=== PATIENT | female | born 1965 | race Caucasian/White ===

== ENCOUNTER 2018-08-18 10:24 | Inpatient (IN) | payer MEDICAID ==
[~2018-08-18] VITALS: Ht 152.4 cm; Wt 51.5 kg
[2018-08-18] MEDS ORDERED: PIPERACILLIN /TAZOBACTAM 3.375 G in IV D5W 50 ML IV ONE (11:30)
[2018-08-18] MEDS ORDERED: IV NS 0.9% 1,000 ML BAG IV ONE (11:30)
[2018-08-18] MEDS ORDERED: CEFTRIAXONE 1GM BAG (ER ONLY) 1 GM/50 ML PIGGYBACK IV ONE (11:30)
--- NOTE | 2018-08-18 11:30 | NUR ---
Discussed plan of care. Comfortably reclining in [facility] No obvious distress
[2018-08-18 11:42] LABS: BASOPHILS # (AUTO) 0.1 /CMM (0.0-0.2); BASOPHILS % (AUTO) 1.2 % (0.0-2.0); EOSINOPHILS % (AUTO) 3.9 % (0.0-6.0); HEMATOCRIT 46 % (33-45); HEMOGLOBIN 15.3 g/dL (11.5-14.8); LYMPHOCYTES # (AUTO) 1.7 /CMM (0.8-4.8); LYMPHOCYTES % (AUTO) 26.1 % (20.0-44.0); MEAN CORPUSCULAR HGB CONC 33 g/dl (31.0-36.0); MEAN CORPUSCULAR VOLUME 87 fL (82-100); MONOCYTES # (AUTO) 0.4 /CMM (0.1-1.30); NEUTROPHILS # (AUTO) 4.2 /CMM (1.8-8.9); NEUTROPHILS % (AUTO) 62.8 % (43.0-81.0); PLATELET COUNT (AUTO) 309 /CMM (150-450); RED BLOOD CELL COUNT(AUTO) 5.33 MIL/uL (4.0-5.2); WHITE BLOOD COUNT (AUTO) 6.7 K/uL (4.3-11.0)
[2018-08-18 11:49] LABS: CALCIUM, SERUM 9.5 mg/dL (8.5-10.1); CREATININE 0.8 mg/dL (0.6-1.3); POTASSIUM 3.6 mmol/L (3.5-5.1)
[2018-08-18] MEDS ORDERED: CEFTRIAXONE 1 G VIAL ONE (12:17)
--- NOTE | 2018-08-18 13:00 | NUR ---
Pt updated with plan of care. Awaiting admission.
[2018-08-18] MEDS ORDERED: CT SWABBABLE VALVE TRANS SET 1 EA INFUS.SET MC ONE (13:54)
[2018-08-18] MEDS ORDERED: IOHEXOL-300 100 ML VIAL IV ONE (13:54)
[2018-08-18] MEDS ORDERED: IV NS 0.9% 250 ML IV ONE (13:54)
[2018-08-18] MEDS ORDERED: HYDROCODONE/APAP 5/325MG 1 EACH TABLET PO PRN ×2 (14:00→14:45)
[2018-08-18] MEDS ORDERED: MAGNESIUM HYDROXIDE 30 ML UDC PO PRN ×2 (14:00→14:45)
[2018-08-18] MEDS ORDERED: ACETAMINOPHEN 325 MG TABLET PO PRN ×2 (14:00→14:45)
[2018-08-18] MEDS ORDERED: Z GUARD REMEDY 2 OZ OINT TP PRN ×2 (14:00→14:45)
[2018-08-18] MEDS ORDERED: MAG HYDROX/AL HYDROX/SIMETH 30 ML UDC PO PRN ×2 (14:00→14:45)
[2018-08-18] MEDS ORDERED: IV NS 0.9% 1,000 ML IV PRN ×2 (14:00→14:45)
[2018-08-18] MEDS ORDERED: HYDROCODONE/APAP 10/325MG 1 EA TABLET PO PRN ×2 (14:00→14:45)
[2018-08-18] MEDS ORDERED: ONDANSETRON HCL/PF 4 MG/2 ML VIAL IVP PRN ×2 (14:00→14:45)
--- NOTE | 2018-08-18 14:31 | NUR ---
ADMIT FROM ER TELEPHONE REPORT RECIEVED FROM MORENA CHINO FROM ER. PATIENT IS TO BE ADMITTED TO [id number] WITH DX OF CELLULITIS. PER REPORT VSS, PATIENT AMBULATORY AND ON ROOM AIR. APPARENTLY HAD BODY SCULPTING PROCEDURE AT [facility] AND THEY MADE INCISION TO LOWER ABD THREE WEEKS AGO AND AREA IS NOW REDDENED AND WARM TO TOUCH, PATIENT REPORTEDLY HAD FEVER AND CHILLS YESTERDAY AND CAME TO ER.
--- NOTE | 2018-08-18 14:31 | NUR ---
Pt for admission to [facility]. NKE with RN-Freddie. Transported to floor in no obvious distress. VSS
[2018-08-18] MEDS ORDERED: FEE PK DOSING 1 MIN EA MC ONE (15:49)
--- NOTE | 2018-08-18 15:50 | NUR ---
MS RN NOTES RECEIVED PATIENT IN BED ALERT, ORIENTED X3 NO SOB OR ACUTE DISTRESS NOTED. PATIENT WITH PERIPHERAL IV ON RIGHT AC INTACT PATENT. PATIENT STATES SHE HAD SOME SORT OF COSMETIC PROCEDURE WHICH GOT INFECTED. SHE HAS AND OPEN ABDOMINAL WOUND ON LOWER ABDOMEN WHICH IS INFECTED. BED IN LOW LOCKED POSITION. CALL LIGHT WITHIN REACH. PATIENT ORIENTED TO ROOM . WILL CONTINUE TO MONITOR.
[2018-08-18 16:00] VITALS: BP 135/86
[2018-08-18] MEDS: VANCOMYCIN 1 GM in IV D5W 250 ML IV SCH (17:25)
[2018-08-18] MEDS ORDERED: PIPERACILLIN /TAZOBACTAM 3.375 G in IV D5W 50 ML IV SCH ×4 (18:00)
[2018-08-18] MEDS: PIPERACILLIN /TAZOBACTAM 3.375 G in IV D5W 100 ML IV SCH (19:15)
--- NOTE | 2018-08-18 19:25 | NUR ---
MS RN NOTES PATIENT IN BED RESTING NO SOB OR ACUTE DISTRESS NOTED. ALL DUE MEDICATIONS ADMINISTERED. ALL NEEDS MET. ENDORSE CARE TO PM SHIFT.
--- NOTE | 2018-08-18 19:30 | NUR ---
MS/RN NOTES RECEIVED PT. LYING IN BED. PT. IS AWAKE, ALERT AND ORIENTED X4. BREATHING EVEN AND UNLABORED ON ROOM AIR. NO SOB, RESPIRATORY DISTRESS OR COMPLAINTS OF PAIN NOTED AT THIS TIME. PT. WITH RIGHT AC 22 GAUGE PERIPHERAL IV PRESENT, PATENT AND INTACT ADMINISTERING TO PT. NS @ 60ML/HR. BED LOCKED AND IN LOWEST POSITION, SIDE RAILS UP X2, CALL LIGHT WITHIN REACH, WILL CONTINUE TO MONITOR.
[2018-08-18 20:00] VITALS: BP 106/57
[2018-08-19] MEDS: PIPERACILLIN /TAZOBACTAM 3.375 G in IV D5W 100 ML IV SCH ×2 (02:27→09:05)
[2018-08-19] MEDS: VANCOMYCIN 1 GM in IV D5W 250 ML IV SCH (04:55)
--- NOTE | 2018-08-19 06:39 | NUR ---
MS/RN NOTES PT. IS LYING IN BED RESTING. BREATHING EVEN AND UNLABORED ON ROOM AIR. NO SOB, RESPIRATORY DISTRESS OR COMPLAINTS OF PAIN NOTED AT THIS TIME. PT. WITH RIGHT AC 22 GAUGE PERIPHERAL IV PRESENT, PATENT AND INTACT ADMINISTERING TO PT. NS @ 60ML/HR. ALL PT. NEEDS MET. BED LOCKED AND IN LOWEST POSITION, SIDE RAILS UP X2, CALL LIGHT WITHIN REACH, WILL ENDORSE TO DAYSHIFT NURSE FOR CONTINUITY OF CARE.
[2018-08-19 06:54] LABS: POTASSIUM 3.7 mmol/L (3.5-5.1)
[2018-08-19 08:00] VITALS: BP 112/65
--- NOTE | 2018-08-19 08:11 | NUR ---
M/S RN OPENING NOTES PATIENT A/O X 4 AND ABLE TO MAKE NEEDS KNOWN. RESPIRATION EVEN AND UNLABORED WITH NO ACUTE RESPIRATORY DISTRESS. ABDOMEN SOFT AND NON DISTENDED WITH ACTIVE BOWEL SOUNDS. SKIN WARM TO TOUCH, WITH ABDOMEN WOUND COVERED. DENIES PAIN AND DISCOMFORT AT THIS TIME. IV LINE ON RIGHT AND LEFT ANTECUBITAL PATENT WITH NO S/SX OF INFILTRATION, RUNNING WITH NS AT 60 ML/HR. ALL CONCERNS ADDRESSED. PLACED CALL LIGHT WITHIN REACH TO ENSURE SAFETY. WILL CONTINUE TO EVALUATE CARE.
--- NOTE | 2018-08-19 09:17 | NUR ---
WOUND CARE CONSULT: PT PRESENTS WITH NECROTIC WOUND TO ABDOMEN, PRESENT ON ADMISSION. RECOMMEND SURGICAL CONSULT. PT CONTINENT AND INDEPENDENT WITH BED MOBILITY. WILL SEE PRN. Addendum: 08/19/18 at 0918 by JOSSE SALVADOR WNDNU Amended: Links added.
[2018-08-19] MEDS ORDERED: SILVER SULFADIAZINE CREAM 25 GM TUBE TP SCH (12:00)
[2018-08-19 16:00] VITALS: BP 111/64
[2018-08-19] MEDS ORDERED: VANCOMYCIN 0.75 GM in IV D5W 250 ML IV SCH (16:00)
[2018-08-19] MEDS ORDERED: LACTOBACILLUS RHAMNOSUS GG 1 EACH CAP.SPRINK PO SCH (17:00)
--- NOTE | 2018-08-19 18:20 | NUR ---
M/S ARCHITECTURAL DESIGN PROFESSOR NOTES PATIENT DISCHARGE WITH A/O X 4 AND ABLE TO MAKE NEEDS KNOWN. RESPIRATION EVEN AND NON LABORED WITH NO ACUTE RESPIRATORY DISTRESS. SKIN WARM TO TOUCH AND DRY, LOWER ABDOMEN WOUND WITH SILVADENE CREAM TO APPLY DAILY ORDERED. ABDOMEN SOFT AND NON DISTENDED WITH ACTIVE BOWEL SOUNDS, LBM 08/19/2018. DENIES PAIN AND DISCOMFORT. IV PULLED OUT WITH NO S/SX OF INFECTION. EXIT CARE DONE WITH ALL CONCERNS ADDRESSED. PATIENT ASSISTED TO PRIVATE CARE IN STABLE CONDITION.
== END 2018-08-19 18:24 | disposition home or self-care (01) | DRG 721 ==
LOC: ER 10:34 → MED 14:54
PROVIDERS: ADMIT Nurse Practitioner Acute Care
DX: T81.40XA Infection following a procedure, unspecified, initial encounter (principal); D75.1 Secondary polycythemia; L02.211 Cutaneous abscess of abdominal wall; L03.311 Cellulitis of abdominal wall; R73.03 Prediabetes; Y83.9 Surgical procedure, unspecified as the cause of abnormal reaction of the patient, or of later complication, without mention of misadventure at the time of the procedure; Y92.89 Other specified places as the place of occurrence of the external cause
CPT/HCPCS: 36415; 80048-TC; 80202-TC; 85025-TC; 85730-TC; 87040-TC; 87081-TC; A6253; G0378; J0696; J2543; J3370; J7030; J7050; J7060; Q9967